=== PATIENT | male | born 1965 | race Caucasian/White ===

== ENCOUNTER 2020-05-12 11:07 | Outpatient (RCR) | payer SELFPAY | END 2020-05-12 23:59 | disposition home or self-care (01) | LOC: ANHAUDIO 11:07 | PROVIDERS: PCP Family Medicine; Visit Provider Family Medicine | DX: Z46.1 Encounter for fitting and adjustment of hearing aid (principal) | CPT/HCPCS: 99199 ==

== ENCOUNTER 2022-01-12 13:34 | Outpatient (RCR) | payer OTHER, SELFPAY | END 2022-01-12 23:59 | disposition home or self-care (01) | LOC: ANHAUDIO 13:34 | PROVIDERS: PCP Family Medicine; Visit Provider Family Medicine | DX: Z46.1 Encounter for fitting and adjustment of hearing aid (principal) | CPT/HCPCS: 99199 ==

== ENCOUNTER 2022-06-13 16:16 | Outpatient (RCR) | payer OTHER, SELFPAY | END 2022-06-13 23:59 | disposition home or self-care (01) | LOC: ANHAUDIO 16:16 | PROVIDERS: PCP Family Medicine; Visit Provider Family Medicine | DX: Z46.1 Encounter for fitting and adjustment of hearing aid (principal) | CPT/HCPCS: V5014 ==